=== PATIENT | female | born 1945 | race Caucasian/White ===

== ENCOUNTER → 2020-02-22 | Outpatient (CLI) | payer OTHER, MEDICARE ==
[~2020-02-22] MED LIST: ACETAMINOPHEN-1 EAC1 PO; AMARYL2 M1 PO; ASPIR 8181 MG PO; ASPIRIN325 PO; CHILDREN'S ASPI81 M1 PO; LIORESAL 10 MG10 MG PO; METFORMIN HCL500 MG PO; NITROGLYCERIN0.4 MG SUBLING; ONE-A-DAY WOMENS PO; PLAVIX 75 MG TA75 M1 PO; POTASSIUM20 PO; REPAGLINIDE1 MG PO; WAL-DRYL25 MG PO
--- NOTE | 2020-02-22 16:57 | CARDNUC ---
[place] [address] CARDIAC NUCLEAR IMAGING REPORT Name: CLARAMYAELISE L Room: [facility]#: [id number] Admission: 02/22/20 Attend Phys: FATIMAH MONTANO Discharge: Date of : 49 Date of Service: 02/22/20 1657 Report #: [id number] THIS REPORT FOR: cc: FATIMAH MONTANO MD, HEATHER L. MD Liston, Michael J. MD [facility] ~ APPROVED REPORT Study performed: 02/22/2020 09:47:30 Exam: Nuclear Stress Test Indication: Dyspnea Patient Location: Out-Patient Stress Tech: Char Coley Stress Nurse: Mago Stanton RN Ht: 5 ft 5 in Wt: 174 lbs BSA: 1.86 m2 BMI: 28.95 Medical History Medical History: Diabetes, HTN, Hyperlipidemia, Stroke/TIA Medications: ntg, asa-81, lisinopril, amlodipine, clopidogrel Allergies: aspart insulin, chlorhexidine, beta blockers Cardiac Risk Factors: Age, Current Smoker, DM, HTN, Hyperlipidemia Exercise History: Indeterminate Stress Test Details Stress Test: Pharmacologic stress testing performed using 0.4 mg of regadenoson per 5 mL given IV over 10 seconds. Reason for pharmacologic stress test: physical limitation. HR Resting HR: 79 bpm Max Heart Rate (APMHR): 148 bpm Max HR Achieved: 107 bpm Target HR (85% APMHR): 125 bpm % of APMHR: 72 Recovery HR: 99 bpm BP Resting BP: 129/95 mmHg Max BP: 156/59 [place] [address] CARDIAC NUCLEAR IMAGING REPORT Name: ELISE COOLEY Room: [facility]#: [id number] Admission: 02/22/20 Attend Phys: FATIMAH MONTANO Discharge: Date of : 49 Date of Service: 02/22/20 1657 Report #: [id number] Resting ECG: Sinus Rhythm Stress ECG: Sinus Tachycardia ST Change: None Arrhythmia: None Recovery ECG: Sinus Rhythm Recovery ST Change: None Recovery Arrhythmia: None Clinical Reason for Termination: Completed protocol The patient tolerated Lexiscan infusion without significant cardiac symptoms. Nurse Comments s/p cva. unsteady gait Stress ECG Conclusion The baseline twelve-lead EKG shows sinus rhythm without significant ST segment or T wave abnormality. EKGs obtained during and post Lexiscan stress show sinus rhythm and sinus tachycardia with no significant ST segment or T wave changes when compared to baseline. There were no stress-induced arrhythmias. NM EXAM: Myocardial Perfusion REST/STRESS Resting Data Rest SPECT myocardial perfusion imaging was performed in supine position 30 minutes following the intravenous injection of 9.3 mCi of Tc-99m Sestamibi. Time of rest injection: 8:05 The images were gated to evaluate regional wall motion and calculate left ventricular ejection fraction. Administration Route: IV Administration Site: Right AC Pharmacologic Stress Pharmacologic stress test was performed by injecting Regadenoson 0.4 mg IV push followed by the intravenous injection of 33.1 mCi of Tc-99m Sestamibi. Time of stress injection: 9:40 Administration Route: IV Administration Site: Right AC Heart Rate at time of stress injection: 107 bpm. Gated Stress SPECT was performed 45 minutes [place] [address] CARDIAC NUCLEAR IMAGING REPORT Name: ELISE COOLEY Room: [facility]#: [id number] Admission: 02/22/20 Attend Phys: FATIMAH MONTANO Discharge: Date of : 49 Date of Service: 02/22/20 1657 Report #: [id number] The images were gated to evaluate regional wall motion and calculate left ventricular ejection fraction. Prone imaging was performed. Study Quality Study: Good Artifact: No artifact Study Data At rest, the left ventricular ejection fraction was 89%.. Post stress, the left ventricular ejection was 79%.. TID = 0.95. Perfusion Perfusion images obtained at rest and post Lexiscan stress showed uniform uptake of the radioisotope throughout the myocardium. There were no defects to suggest infarct or ischemia. Wall Motion Normal left ventricular wall motion. Nuclear Conclusion ECG Findings: negative for ischemia Clinical Findings: negative for ischemia Nuclear Findings: negative for ischemia Exercise Capacity: not assessed Left Ventricular Function: normal Risk Study: low Perfusion study show no defect to suggest infarct or ischemia. Left ventricular systolic function appears normal on gated studies. This is a low risk study. <Conclusion> The baseline twelve-lead EKG shows sinus rhythm without significant ST segment or T wave abnormality. EKGs obtained during and post Lexiscan stress show sinus rhythm and sinus tachycardia with no significant ST segment or T wave changes when compared to baseline. There were no stress-induced arrhythmias. <ELECTRONICALLY SIGNED> By: Branden Santiago MD, FACC 02/22/20 1657 [id number] Branden Santiago MD, FACC /INF
== END ==
LOC: M.NUC 02-13 07:40 → M.RAD 07:30 → M.NUC 08:00
PROVIDERS: ATTEND Internal Medicine
DX: R00.0 Tachycardia, unspecified (principal); D72.829 Elevated white blood cell count, unspecified